=== PATIENT | male | born 1950 | race Caucasian/White ===

== ENCOUNTER 2016-08-25 12:37 | Observation (INO) | payer OTHER ==
--- NOTE | ~2016-08-25 | HP ---
History And Physical [id number] [facility] [place]. [address] NAME: SAFIA VEGA : 52 STATUS : ADM IN PAT#: [id number] AGE: 65 ADM/REG DATE : 08/25/16 MR#: [id number] REPORT SERV DATE: 08/25/16 DICTATED BY: DATE: REPORT STATUS : Draft TRANSCRIBED BY: MODL DATE: 08/25/16 DATE OF ADMISSION: 08/25/2016 CHIEF COMPLAINT: Failure to thrive. HISTORY OF PRESENT ILLNESS: The patient is a 65-year-old, white male, followed outpatient by Dr. Doc Almendarez. The patient was at his senior lead developer's office today, Dr. Rodrigues, for a scheduled followup appointment on peripheral edema. Patient had no evidence of edema, but told the director of medical review in our office that he has recently been experiencing abdominal pain, weight loss, continue with nausea and vomiting, poor p.o. intake, and was found to be hypotensive with blood pressure 90/60. Dr. Rodrigues contacted the Hospitalist Service for direct admission, and the patient has now been admitted to bed 452. To obtain more history, patient reports that he has had left-sided abdominal pain and flank pain for over 20 years, and that the nature of his pain is unchanged from prior. In fact, he thinks that the pain may be better since he was started on Movantik by his primary care provider. He denies any vomiting and states "I never throw up," but he does have some chronic nausea, again for the past 20 years. He has had some weight loss, but minimal, maybe only three pounds since . He reports the his weight always tends to be low, and he never tends to have much of an appetite. His was concerned because his oral intake seems to have declined even more since in particular. Regarding the left-sided abdominal pain, it presents from just under the rib and radiates down to the groin. Patient states that there are no precipitating factors. Palliating factors include leaning into the pain, and changing his position. When he bends away from the left side, the pain is increased. He is on chronic narcotics for the abdominal pain, under the care of Dr. Panda Keene. The patient also sees radiographer mammographer Dr. Horner and has had a thorough GI evaluation per his primary care provider to include recent endoscopies, ultrasounds, CT scans. There was concern in 2012 that he may have had a partial small bowel obstruction, but it ended up instead that he has chronic constipation, and possible opiate-induced slow transit. The only acute issue patient mentions or change from baseline is that he has recently had a few falls at home. He reports that when he stands up suddenly he feels weak and dizzy, and sometimes "blacks out" by which he means that things around him become dark and he has some blurriness of his vision, with what sounds to be syncopal episodes. He does not lose consciousness. There was no loss of bowel or bladder continence. He has no postictal state. A few weeks ago, he may have hit his head, but has not felt any specific neurologic issues since then. He does endorse some chronic pain and weakness in his left lower extremity but this is unchanged from prior. He also endorses a "chronic chest pain" which has previously been evaluated by Dr. Rodrigues. He denies any palpitations or racing heart rate. He states he is "short of breath all the time" and does have a history of COPD but has not required oxygen. He reports decreased urination which is not new for him. He also reports odor to his urine History And Physical [address] [address] NAME: SAFIA VEGA : 52 STATUS : ADM IN [facility]#: [id number] AGE: 65 ADM/REG DATE : 08/25/16 MR#: [id number] REPORT SERV DATE: 08/25/16 DICTATED BY: DATE: REPORT STATUS : Draft TRANSCRIBED BY: MODL DATE: 08/25/16 and occasional painful urination. He also complains of an "odor "to his penis which occurs every afternoon. There has not been any swelling, rash, or skin breakdown. The patient reports that his blood pressure is frequently low, typically in the systolic 110 to systolic 90 range. REVIEW OF SYSTEMS: Full 14-point review of systems is negative except as dictated in the history of present illness. PAST MEDICAL HISTORY: Includes a self-reported CVA in 1983. 1. Chronic obstructive pulmonary disease. 2. Hypertension. 3. Hyperlipidemia. 4. Left renal cyst. 5. Hyponatremia-recently improved with adjustments in patient's antidepressants. 6. Anemia. 7. Peptic ulcer disease. 8. Colon polyps. 9. Internal hemorrhoids. 10.Chronic back pain. 11.Chronic abdominal pain. PAST SURGICAL HISTORY: Includes cervical spine fusion, bone graft to the left pelvis, internal hemorrhoids, colon polypectomy, lung VATS procedure, and a cholecystectomy. The patient has not had any other intraabdominal surgeries. ALLERGIES: ALLERGY LIST IS CURRENTLY PENDING. HOME MEDICATIONS: 1. Gabapentin 800 mg p.o. three times a day. 2. Calcium 600 mg p.o. daily. 3. Magnesium 250 mg p.o. daily. 4. Seroquel 25 mg p.o. daily. 5. Omeprazole 40 mg p.o. daily. 6. BuSpar 5 mg p.o. daily. 7. Tamsulosin 0.4 mg p.o. daily. 8. Metoprolol 25 mg p.o. daily. 9. Loratadine 10 mg p.o. daily. 10.Singulair 10 mg p.o. daily. 11.Hydrochlorothiazide 25 mg p.o. daily. 12.Clonazepam 1 mg twice a day. 13.Sertraline 100 mg p.o. daily. 14.Meloxicam 7.5 mg p.o. daily. 15.Oxycodone 10 mg four times a day. 16.Geritol. 17.Movantik. History And Physical [address] [address] NAME: SAFIA VEGA : [birth year] STATUS : ADM IN [facility]#: [id number] AGE: 65 ADM/REG DATE : 08/25/16 MR#: [id number] REPORT SERV DATE: 08/25/16 DICTATED BY: DATE: REPORT STATUS : Draft TRANSCRIBED BY: MODL DATE: 08/25/16 SOCIAL HISTORY: The patient used to smoke, but quit tobacco in 1992. He used to drink alcohol but has not had any in 10 years. 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 He has been on disability since 2005. He is and his is here at the bedside. They have no children together, but do have children from other relationships. FAMILY HISTORY: Patient's father of a self-inflicted gunshot wound to the head. PHYSICAL EXAMINATION: VITAL SIGNS: Temperature 97.5, pulse 75, respirations 18, and oxygen saturations 99% on room air. Blood pressure 121/70. GENERAL: This is a chronically ill-appearing white male, looking much older than his stated age in no acute distress. Alert and oriented in three dimensions. Conversant. HEENT: Normocephalic, atraumatic. Pupils are equally round and reactive to light. No scleral icterus. No conjunctival pallor. No sinus tenderness to palpation. No nasal drainage. Oropharynx moist and pink with no posterior pharyngeal erythema or exudate. NECK: Supple with no jugular venous distention. No lymphadenopathy. No bruits. No thyromegaly. CARDIOVASCULAR: Regular rate and rhythm with no murmurs, rubs or gallops. LUNGS: Clear to auscultation bilaterally with no wheezes, crackles, or rhonchi. ABDOMEN: Soft, minimal tenderness to palpation along the left side, extending from rib down to the groin. No evidence of inguinal hernia. No evidence of abdominal wall hernia. Positive bowel sounds in four quadrants. No hepatosplenomegaly. EXTREMITIES: No cyanosis, clubbing, or edema. Negative Homans' sign bilaterally. SKIN: Normal skin turgor with no rash or skin breakdown. NEUROLOGIC: Cranial nerves II through XII were tested and are intact. Deep tendon reflexes 2+ bilateral brachioradialis and patellar tendons. Sensation intact to fine touch and temperature in all four limbs. Strength is globally diminished at 4- out of 5 in all four extremities. LABS: Labs are currently pending. Verbal report of echocardiogram from Dr. Rodrigues's office is that it was normal with an ejection fraction of 55%. No evidence of any valvular abnormalities. Abdominal imaging in the [facility] was reviewed including an abdominal ultrasound from 03/2016 showing cholecystectomy, small left renal cyst. The patient also had a barium swallow on 03/15 showing silent aspiration of thick liquid barium, mild esophageal dysmotility, mild spontaneous gastroesophageal reflux. No hiatal hernia. Normal appearance of the stomach and proximal duodenum. The patient also had a Doppler evaluation of the abdominal aorta and common iliac arteries 03/2016 showing no Doppler evidence for aneurysm involving abdominal aorta or common iliac arteries, and grossly normal flow. Patient had carotid ultrasounds 01/31 but the report is not available in the computer for review. The patient's last CT abdomen and pelvis in this system was 09/14/2011 demonstrating no acute abdominal pathology, stable changes of cholecystectomy, small left renal cyst, mild subsegmental atelectasis of the right middle lobe and right lower lobe, and stable position of an intrathecal neurostimulator lower thoracic spinal device. No acute pelvic pathology, History And Physical [address] [address] NAME: SAFIA VEGA : 52 STATUS : ADM IN PAT#: [id number] AGE: 65 ADM/REG DATE : 08/25/16 MR#: [id number] REPORT SERV DATE: 08/25/16 DICTATED BY: DATE: REPORT STATUS : Draft TRANSCRIBED BY: MODL DATE: 08/25/16 stable postsurgical changes from posterior fusion of L5 through S1. The patient also reports he has had multiple GI evaluation and diagnostic done at [facility] and those results have been requested from his primary care provider. IMPRESSION: 1. Left-sided abdominal and flank pain-chronic in nature, for the past 20 years, no recent change in quality or intensity. 2. Poor p.o. intake-also more chronic issue for the patient, possibly progressive since 06/2016. Query malnutrition. 3. Recent falls-found to be syncopal episodes, with recent head trauma. 4. Urinary symptoms including decreased urination, painful urination, and odor, previously evaluated in the outpatient setting with unremarkable workup. 5. Complex past medical history as outlined above. PLAN: 1. Observation admission to [facility]. Attending, Dr. Freddie Smith. 2. The patient was discussed with his primary care provider, Dr. Doc Almendarez who does not feel that these symptoms sound new in nature and reports that the patient has had an extensive GI evaluation, and is vexing over that documentation currently as not all is available within the [facility]. We will defer on ordering additional GI studies or imaging until the results of that can be reviewed. 3. For the possible syncopal episodes versus orthostatic hypotension, check orthostatic vital signs, check a CT of the brain especially given recent head trauma, check carotids. Recent echocardiogram was normal and does not need to be repeated currently. 4. For urinary symptoms, check a urinalysis with reflex to culture if indicated. 5. For the vague nonspecific complaints, CBC, CMP, lipase, TSH, prealbumin, cortisol are pending. 6. EKG pending as well. 7. Additional recommendations will be pending results of that evaluation as well as review of outside records. Seventy minutes was spent in completion of the H and P, including discussion with multiple physicians and extensive record review. CHRIS/MITCHELL Freddie Smith M.D. / [id number] CC: Swati Boone M.D.
--- NOTE | ~2016-08-25 | DS ---
Discharge Summary [facility] [address] [facility] [place]. [address] NAME: SAFIA VEGA : 52 STATUS : DIS IN PAT#: [id number] AGE: 65 ADM/REG DATE : 08/25/16 MR#: [id number] REPORT SERV DATE: 08/27/16 DICTATED BY: DATE: REPORT STATUS : Draft TRANSCRIBED BY: MODL DATE: 08/26/16 ADMISSION DATE: 08/25/2016 DISCHARGE DATE: 08/26/2016 The patient [facility]. DISCHARGE DIAGNOSES: 1. Chronic abdominal pain - no acute component. 2. Poor p.o. intake chronically, but no evidence of malnutrition. 3. Possible syncopal episodes versus hypotension. Hold parameters placed on blood pressure medications at discharge. 4. Dysuria, odor, decreased urination - no evidence of urinary tract infection. 5. Diastasis recti. 6. Left lower extremity weakness, history of degenerative disk disease - for outpatient physical therapy referral if felt beneficial by primary care provider. 7. Prior cerebrovascular accident. 8. History of chronic obstructive pulmonary disease - not oxygen dependent. 9. Dyslipidemia. 10.Left renal cyst. 11.Mild anemia - hemoglobin of 10.1. 12.History of peptic ulcer disease. 13.History of colon polyps. 14.History of internal hemorrhoids. 15.Chronic pain syndrome. IMAGING: Included a CT of the brain without contrast on 08/25/2016, negative for any acute intracranial process. Recent outpatient carotid artery Doppler and echocardiogram also reviewed - with less than grade 1 bilateral carotid stenosis and ejection fraction 50% with mild tricuspid regurgitation. LABORATORY DATA: White blood cell count 6.7, hemoglobin 10.5, platelets 168. D-dimer 0.65, sodium 135, potassium 3.3, creatinine 1.1, glucose 111, calcium 7.9. Liver enzymes normal. Amylase and lipase normal. TSH 3.6. Pre-albumin 26.7. Urinalysis shows 8 hyaline casts. Hemoglobin A1c 5.0. Cortisol 11.3. BRIEF HISTORY: For full details, please see the previously dictated history of present illness by myself on 08/25/2016. This is a 65-year-old white male, patient of Dr. Doc Almendarez. 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 Rodrigues, for chief complaints of abdominal pain, weight loss, nausea, vomiting, poor p.o. intake, hypotension, and falls. When the patient was admitted to the hospital and more history was obtained, the patient reported that the majority of these complaints were actually chronic in nature, with the exception of the falls. This was corroborated by his primary care provider. Therefore, GI symptoms were not extensively evaluated this admission, but he was evaluated for syncope and falls. Discharge Summary [address] [address] NAME: SAFIA VEGA : 52 STATUS : DIS IN PAT#: [id number] AGE: 65 ADM/REG DATE : 08/25/16 MR#: [id number] REPORT SERV DATE: 08/27/16 DICTATED BY: DATE: REPORT STATUS : Draft TRANSCRIBED BY: MITCHELL DATE: 08/26/16 HOSPITAL COURSE: The patient was admitted to [facility] in observation status. Given that he has been having recent falls and has a history of some chronic left lower extremity weakness, CT of the brain was obtained and was negative for any acute process. The patient also has recently had carotid ultrasounds and echocardiogram, within the past 4 months. These records were reviewed and as dictated above, but no additional repeat studies were obtained. He did have an EKG here demonstrating normal sinus rhythm with prominent artifact, but no evidence of dysrhythmias. His admission blood pressure was low at 96/60, and the patient was unable to provide an accurate home medication list despite contacting multiple family members and his Pharmacy; therefore, the majority of his home medications were held with improvement in his blood pressure and symptoms. His discharge blood pressure value is 146/80. He was ambulatory, with minimal left lower extremity weakness. He did endorse some dizziness, but was not found to be orthostatic by vital signs. He was eating and drinking without difficulty, urinating. He did not have a bowel movement here - but this is typical for him as he has a long-standing history of chronic constipation and slow GI motility. He is being discharged to home in the care of his family with no specific activity or dietary restrictions. He is encouraged to maintain adequate hydration at home, as dehydration may have contributed to some of his symptoms, and he did have 8 hyaline casts present on urinalysis. He is encouraged to follow up with his primary care provider within the next one to two weeks, to further review his blood pressure medication regimen and to discuss possible effects of polypharmacy, and consideration of a Physical Therapy referral for diastasis recti and left lower extremity weakness likely due to history of degenerative disk disease of the lumbar spine. DISCHARGE MEDICATIONS: Include: 1. Klonopin 1 mg p.o. twice a day. 2. Albuterol 1 puff inhaled every six hours as needed for shortness of breath. 3. Flonase 2 sprays in each nostril daily. 4. Percocet 7.5/325 mg p.o. four times a day. 5. Prilosec 40 mg p.o. daily. 6. Zoloft 100 mg p.o. daily. 7. HCTZ 25 mg p.o. daily - the patient to hold if his systolic blood pressure is less than 110. 8. Claritin 10 mg p.o. daily. 9. Metoprolol 12.5 mg p.o. twice a day - the patient to hold if systolic blood pressure is less than 110. 10.Singulair 10 mg p.o. daily. 11.Mobic 7.5 mg p.o. daily. CHRIS/MITCHELL Freddie Quiros Discharge Summary [address] [address] NAME: SAFIA VEGA : 52 STATUS : DIS IN PAT#: [id number] AGE: 65 ADM/REG DATE : 08/25/16 MR#: [id number] REPORT SERV DATE: 08/27/16 DICTATED BY: DATE: REPORT STATUS : Draft TRANSCRIBED BY: MODL DATE: 08/26/16 Swati Smith / [id number] CC: Swati Boone M.D.
[~2016-08-25 12:37] MED LIST: ADVAIR115P INH; ALLEGRA180 PO; ASA5GR PO; ASAB PO; AVODART PO; BUSPAR15 M1 PO; BUSPAR5 PO; CELEXA40 MG PO; CITRACAL PO; FERRETTS325 MG PO; HEMATINIC PL PO; KDUR20 PO; KLONO1 PO; LEXAPRO10 PO; LEXAPRO20 PO; LIBRAX PO; LOPID6 PO; LYRICA50 PO; MCZ125 PO; METAMUCIL CAN7 OZ PO; METHOC750B PO; MSCONT15 PO; MSCONTIN PO; MULTIPLE VIT PO; OCEAN; OXYCOD PO; OXYCON10 PO; OXYCONTIN15 MG PO; Oxycontin PO; PRILO PO; ROXICODONE30 MG PO; TRAZ50 PO; VENTOLIN HFA INH; ZESTORETIC1 TAB PO; ZOCOR10 PO; ZOCOR20 PO; ZOL100 PO; [UNRECOGNIZED DRUG - OTHER] PO
[2016-08-25] MEDS ORDERED: PERCOCET 7.5/321 TAB PO (16:47)
[2016-08-25] MEDS ORDERED: FLONASE NAS (16:47)
[2016-08-25] MEDS ORDERED: HYDROCHLOROT25 MG PO (16:48)
[2016-08-25] MEDS ORDERED: ZOL100 PO (16:48)
[2016-08-25] MEDS ORDERED: PRILOSEC40 MG PO (16:48)
[2016-08-25] MEDS ORDERED: LOP25 PO (16:48)
[2016-08-25] MEDS ORDERED: BREO ELLIPTA 21 EACH INH (16:48)
[2016-08-25] MEDS ORDERED: CLARIT10 PO (16:48)
[2016-08-25] MEDS ORDERED: VENTOLIN HFA INH (16:49)
[2016-08-25] MEDS ORDERED: TUDORZA PRESS400 MCG INH (16:49)
[2016-08-25] MEDS ORDERED: MOBIC7.5 PO (16:49)
[2016-08-25] MEDS ORDERED: SINGULAIR1 PO (16:49)
[2016-08-25] MEDS ORDERED: KLONO1 PO (16:49)
[2016-08-25] MEDS ORDERED: *UNABLE1 (17:31)
[2016-08-25 18:02] LABS: BASOPHILS 0.1 %; BASOPHILS ABSOLUTE 0.01 10/3/uL (0.0-0.16); EOSINOPHILS 1.6 %; EOSINOPHILS ABSOLUTE 0.11 10/3/uL (0.0-0.53); HEMATOCRIT 30.2 % (40.0-51.0); HEMOGLOBIN 10.5 g/dL (13.6-17.8); LYMPHOCYTES 27.6 %; LYMPHOCYTES ABSOLUTE 1.86 10/3/uL (0.67-4.30); MEAN CORPUS HGB CONC 34.8 g/dL (32.0-36.0); MEAN CORPUSCULAR HEMOGLOB 30.9 pg (26.0-34.0); MEAN PLATELET VOLUME 8.6 fL (9.2-13.0); MONOCYTES 6.7 %; MONOCYTES ABSOLUTE 0.45 10/3/uL (0.21-1.20); NEUTROPHILS ABSOLUTE 4.31 10/3/uL (2.02-8.40); PLATELET COUNT 168 10/3/uL (150-400); RBC DISTRIBUTION WIDTH 13.9 % (12.0-16.0)
[2016-08-25 18:05] LABS: MANUAL DIFF NO %; MEAN CORPUSCULAR VOLUME 88.8 fL (80-100); WHITE BLOOD CELLS 6.7 10/3/uL (4.5-10.5)
[2016-08-25 18:14] LABS: D-DIMER QUANTITATIVE 0.65 ug/mLFEU (< 0.50)
[2016-08-25 18:27] LABS: A/G RATIO 1.2 (0.7-1.9); ALBUMIN 3.5 G/DL (3.5-5.0); ALKALINE PHOSPHATASE 85 U/L (45-117); BUN (BLOOD UREA NITROGEN) 9 MG/DL (6-23); CALCIUM, SERUM 7.9 MG/DL (8.5-10.4); CHLORIDE, SERUM 100 MMOL/L (96-112); CO2 (CARBON DIOXIDE) 25 MMOL/L (24-34); CREATININE 1.15 MG/DL (0.70-1.30); GFR AFRICAN AMERICAN 78 ML/MIN (>=60); GFR NON AFRICAN AMERICAN 67 ML/MIN (>=60); GLUCOSE, SERUM 111 MG/DL (60-99); POTASSIUM, SERUM 3.3 MMOL/L (3.5-5.3); PREALBUMIN 26.7 MG/DL (17.0-43.0); SGOT(AST) 19 U/L (5-40); SGPT(ALT) 26 U/L (5-65); SODIUM, SERUM 135 MMOL/L (135-148); TOTAL BILIRUBIN 0.3 MG/DL (0-1.2); TOTAL PROTEIN 6.5 G/DL (6.0-8.5)
[2016-08-25 18:57] LABS: WBC (NOT ORDERED) (RFLEX) 0 (0-5)
[2016-08-25 19:25] LABS: ASCORBIC ACID (UR NOT ORDER) NEG (NEG); BILIRUBIN, URINE NEGATIVE (NEG); KETONE, URINE NEGATIVE (NEG); LEUKOCYTE ESTERASE(NOT OR NEG (NEG)
== END 2016-08-26 15:25 | disposition home or self-care (01) ==
LOC: 4EA 12:37
PROVIDERS: Hospitalist
DX: R10.9 Unspecified abdominal pain (principal); J44.9 Chronic obstructive pulmonary disease, unspecified; K21.9 Gastro-esophageal reflux disease without esophagitis; E78.5 Hyperlipidemia, unspecified; R63.0 Anorexia; R11.0 Nausea; D64.9 Anemia, unspecified; E86.0 Dehydration; I95.1 Orthostatic hypotension; E87.1 Hypo-osmolality and hyponatremia; G89.29 Other chronic pain; M54.9 Dorsalgia, unspecified; R30.0 Dysuria; G89.4 Chronic pain syndrome; N28.1 Cyst of kidney, acquired; R06.00 Dyspnea, unspecified; I10 Essential (primary) hypertension; R60.0 Localized edema; Z87.891 Personal history of nicotine dependence; Z88.0 Allergy status to penicillin; Z79.899 Other long term (current) drug therapy; Z90.49 Acquired absence of other specified parts of digestive tract; Z23 Encounter for immunization
CPT/HCPCS: 70450; 80053; 81001; 82150; 82533; 83036; 83690; 84134; 84443; 85025; 85379; 90686; 93005; 94640; 96372; 96374; A9270-GY; G0008; G0378